=== PATIENT | male | born 1970 | race Hispanic/Latino ===

== ENCOUNTER 2016-12-03 10:43 | Emergency (ER) | payer OTHER ==
[2016-12-03 10:49] VITALS: BP 130/82
--- NOTE | 2016-12-03 12:05 | XRay Report ---
RIGHT HAND RADIOGRAPHS INDICATION: Pain, fall. COMPARISON: None similar. FINDINGS: AP, lateral and oblique right hand radiographs demonstrate comminuted fracture of the distal aspect of the fifth distal phalanx with approximately 1-2 mm displacement with overlying soft tissue injury and bandage artifact. No joint involvement. Normal remainder exam. CONCLUSION: Comminuted acute fracture involving the tip of the right fifth digit, as described. Thank you for the opportunity to participate in this patient's care.
[2016-12-03] MEDS ORDERED: MOTRIN PO ONE (13:41)
[2016-12-03] MEDS ORDERED: BOOSTRIX IM ONE (13:41)
[2016-12-03] MEDS ORDERED: XYLOCAINE 2% INFILTRATI ONE (13:42)
--- NOTE | 2016-12-03 14:17 | Emergency Department Report ---
Upper Extremity - HPI Chief Complaint: Extremity Injury, Upper Stated Complaint: RT HAND FINGER INJURY Time Seen by Provider: 12/03/16 13:40 Upper Extremity: Right Little Finger Occurred When: Today Mechanism: Fall, Hit with Object Severity: moderate Symptoms: Yes Pain with Movement, Yes Deformity, Yes Swelling, Yes Bruising/ Ecchymosis, Yes Laceration or Abrasion, No Limited Range of Movement, No Numbness, No Weakness Other History: 46-year-old male past medical history none presents with complaint of laceration to distal right pinky finger. States the last night he was walking with a cinder block fell forward onto an outstretched hand and jammed the tip of his right pinky finger between the ground and a cinder block. Patient has a visible abrasion to distal fingertip and subungual hematoma right distal fingertip with a cracked nail. Distal fingertip is swollen and bruised. Slight bleeding from area. he denies any loss of consciousness no head trauma stood up immediately after the fall. States that his distal right ring and pinky fingers are bothering him but has no other complaints no wrist pain or forearm pain or elbow pain. Unsure of his tetanus vaccine up date status. States that it occurred early this morning. ED Review of Systems ROS: Stated complaint: RT HAND FINGER INJURY Other details as noted in HPI Constitutional: denies: chills, fever Eyes: denies: eye pain, eye discharge, vision change ENT: denies: ear pain, throat pain Respiratory: denies: cough, shortness of breath, wheezing Cardiovascular: denies: chest pain, palpitations Endocrine: no symptoms reported Gastrointestinal: denies: abdominal pain, nausea, diarrhea Genitourinary: denies: urgency, dysuria Musculoskeletal: denies: back pain, joint swelling, arthralgia Skin: denies: rash, lesions Neurological: denies: headache, weakness, paresthesias Psychiatric: denies: anxiety, depression Hematological/Lymphatic: denies: easy bleeding, easy bruising ED Past Medical Hx - Past Medical History Previous Medical History?: No - Surgical History Past Surgical History?: Yes Additional Surgical History: hernia repair - Social History Smoking Status: Current Every Day Smoker Substance Use Type: None - Medications Home Medications: Home Medications Medication Instructions Recorded Confirmed Last Taken Type Acetaminophen/Codeine [Tylenol 1 tab PO Q6H PRN #12 tab 12/03/16 Unknown Rx /Codeine # 3 tab] Amoxicillin/K Clav Tab [Augmentin 1 tab PO Q12HR #20 tab 12/03/16 Unknown Rx 875 mg] Ibuprofen [Motrin] 800 mg PO Q8HR PRN #25 tablet 12/03/16 Unknown Rx Neomycn/Baci Zn/Pmyx Bs/Pramox 1 applicatio TP BID #1 oint...g. 12/03/16 Unknown Rx [Triple Antibioti-Pain Rlf Oint] Upper Extremity Exam - Exam General: Vital signs noted. No distress. Alert and acting appropriately. Head and Torso: No HEENT Abnormality, No Neck Tenderness, No Chest/Lungs Abnormality, No Abdominal Tenderness, No Back Tenderness Shoulder Exam: Yes Normal Range of Motion in Shoulder, No Shoulder Tenderness, No Clavicle Tenderness, No Shoulder Deformity, No AC Joint Tenderness Arm Exam: No Arm/Humerus Tenderness, No Arm Deformity Elbow: No Elbow Tenderness, No Normal Range of Motion in Elbow, No Elbow Deformity Forearm: No Forearm Tenderness, No Forearm Deformity, No Pain with Pronation, No Pain with Supination Wrist: Yes Normal ROM in Wrist (flexion and extension intact on examination), No Wrist Tenderness, No Wrist Deformity, No Snuffbox Tenderness (is no snuffbox tenderness on clinical exam), No Pain with Axial Thumb Compression Hand: Yes Digit Tenderness (distal ring and pinky finger tenderness past the DIP joints), Yes Normal ROM in Digit(s), Yes Digit(s) Deformity (bruising at tip of right pinky finger near finger pad and lateral edges of fingertip), No Hand Tenderness, No Hand Deformity, No Tendon Dysfunction CMS Exam: Yes Broken Skin (abrasions to distal right pinky finger Reynoldson nail bed edge), Yes Normal Distal Pulses (distal capillary refill less than 1 second all fingers), No Normal Capillary Refill, No Normal Distal Sensation ( distal sensation is intact in all fingers to light touch and proprioception) Hand L/R Back: 1 - A braised skin lateral nail bed no exposed bone, nail bed is damaged subungual hematoma ED Course Vital Signs 12/03/16 10:46 Temperature 98.5 F Pulse Rate 110 H Respiratory 18 Rate Blood Pressure 130/82 O2 Sat by Pulse 99 Oximetry - I & D Right Distal Finger Type of Procedure: Simple Site: right distal ring finger tip Blade Size: cautery device I & D Procedure: betadine prep, sterile dressing applied Progress: Subungual hematoma distal right ring finger fingertip. Single burn site/hole made in the nailbed using cautery with relief and evacuation of subungual hematoma. Procedure tolerated well. Area covered with triple antibiotic ointment and Band-Aid. Minimal bleeding. - Laceration /Wound Repair Right Distal Finger Wound Location: upper extremity (pinky fingertip) Wound Length (cm): 2 Wound's Depth, Shape: superficial Irrigated w/ Saline (ccs): 1,000 Betadine Prep?: Yes Anesthesia: 1% Lidocaine Volume Anesthetic (ccs): 4 Wound Debrided: minimal Suture Size/Type: 5:0, proline Number of Sutures: 6 Layer Closure?: No Sterile Dressing Applied?: Yes (triple abx, kerlix gauze) Progress: Digital block performed, 6 Prolene sutures placed. Good wound closure achieved. Procedure tolerated well minimal bleeding. ED Medical Decision Making - Medical Decision Making A/P: Distal fingertip abrasion, fingertip fracture 1-fingertip addressed with Dermabond and Steri-Strips, nail trephination performed with cautery device to relieve subungual hematoma. Patient placed in a fingertip splint after being wrapped with sterile gauze and triple antibiotic ointment smeared on some abrasions. I specifically advised the patient to return to the ED for any pus drainage significant bleeding significant swelling worsen from current fevers or chills. Patient stated that he understood these instructions clearly. 2-I advised patient to follow up with orthopedics to mitigate any long-term disability loss of range of motion or infection of finger. Patient stated he understood the importance of follow-up and I provided him referral information 3-Augmentin 875 mg twice a day 10 day course 4- wound check in 48-72 hours in the ED 5- naproxen when necessary, Tylenol No. 3 when necessary 6- case discussed with before discharge Critical care attestation.: If time is entered above; I have spent that time in minutes in the direct care of this critically ill patient, excluding procedure time. ED Disposition Clinical Impression: Fingertip contusion Qualifiers: Encounter type: initial encounter Qualified Code(s): S60.00XA - Contusion of unspecified finger without damage to nail, initial encounter Abrasion of finger of right hand Qualifiers: Encounter type: initial encounter Qualified Code(s): S60.419A - Abrasion of unspecified finger, initial encounter Subungual hematoma of finger of right hand Qualifiers: Encounter type: initial encounter Qualified Code(s): S60.10XA - Contusion of unspecified finger with damage to nail, initial encounter Fracture, finger, distal phalanx Qualifiers: Encounter type: initial encounter Finger: little finger Fracture type: closed Fracture alignment: displaced Laterality: right Qualified Code(s): S62.636A - Displaced fracture of distal phalanx of right little finger, initial encounter for closed fracture Disposition: TO HOME OR SELFCARE Is pt being admited?: No Does the pt Need Aspirin: No Condition: Stable Instructions: Finger Fracture (ED), Abrasion (ED), Skin Adhesive Care (ED) Additional Instructions: Patient to have wound check in the ED in 48-72 hours. Prescriptions: Acetaminophen/Codeine [Tylenol /Codeine # 3 tab] 1 tab PO Q6H PRN #12 tab PRN Reason: Pain Amoxicillin/K Clav Tab [Augmentin 875 mg] 1 tab PO Q12HR #20 tab Ibuprofen [Motrin] 800 mg PO Q8HR PRN #25 tablet PRN Reason: Pain Neomycn/Baci Zn/Pmyx Bs/Pramox [Triple Antibioti-Pain Rlf Oint] 1 applicatio TP BID #1 oint...g. Referrals: NEIL PEDROZA MD [Staff Physician] - 3-5 Days [facility] [Provider Group] - 3-5 Days [facility] [Provider Group] - 3-5 Days Forms: Work/School Release Form(ED) Time of Disposition: 14:46
== END 2016-12-03 15:01 | disposition home or self-care (01) ==
LOC: ED 10:43
DX: S62.636A Displaced fracture of distal phalanx of right little finger, initial encounter for closed fracture (principal); S60.051A Contusion of right little finger without damage to nail, initial encounter; F17.210 Nicotine dependence, cigarettes, uncomplicated; W23.0XXA Caught, crushed, jammed, or pinched between moving objects, initial encounter; Y93.89 Activity, other specified; Y92.89 Other specified places as the place of occurrence of the external cause; Y99.8 Other external cause status
CPT/HCPCS: 90471; 90715; 99283